=== PATIENT | female | born 1960 | race Caucasian/White ===

== ENCOUNTER 2023-10-21 09:10 | Outpatient (CLI) | payer MEDICARE, SELFPAY ==
[2023-10-21 14:00] LABS: Basophils Absolute Auto 0.1 K/mm3 (0.0-0.1); Basophils Percent Auto 0.6 % (0.2-1.2); Eosinophils Absolute Auto 0.1 K/mm3 (0-0.3); Eosinophils Percent Auto 1.6 % (0-4.4); Hematocrit 44.6 % (37.0-47.0); Hemoglobin 13.8 g/dL (12.0-15.0); Immature Granulocyte Absolute 0.04 K/mm3 (0.00-0.031); Immature Granulocyte Percent A 0.5 % (0-0.5); Lymphocytes Absolute Auto 1.91 K/mm3 (0.9-3.2); Lymphocytes Percent Auto 22.4 % (18.3-44.2); Mean Corpuscular HGB Conc 30.9 g/dl (32-36); Mean Corpuscular Hemoglobin 29.7 pg (26-34); Mean Corpuscular Volume 95.9 fl (80-100); Mean Platelet Volume 9.2 fl (7.4-10.4); Monocytes Absolute Auto 0.6 K/mm3 (0.1-0.6); Monocytes Percent Auto 7.4 % (2.6-8.5); Neutrophils Absolute Auto 5.8 K/mm3 (1.3-6.7); Neutrophils Percent Auto 67.5 % (45.5-73.1); Platelet Count Result 315 k/mm3 (150-375); Red Blood Count 4.65 M/mm3 (4.2-5.4); Red Cell Distribution Width 12.8 % (11.5-14.5); White Blood Count 8.5 K/mm3 (4.5-10.0)
[2023-10-21 14:11] LABS: Alanine Aminotransferase 17 U/L (6-35); Alkaline Phosphatase 106 U/L (38-126); Anion Gap 3 mmol/L (4-12); Aspartate Amino Transferase 34 U/L (14-36); Bilirubin,Total 0.7 mg/dL (0.2-1.3); Blood Urea Nitrogen 15 mg/dL (7-17); Calcium 9.1 mg/dL (8.4-10.2); Carbon Dioxide 32 mmol/L (22-30); Chloride 104 mmol/L (98-107); Cholesterol 187 mg/dL (0-200); Estimated Glomerular Filt Rate > 60; Glucose 116 mg/dL (65-110); HDL Direct 41 mg/dL; Sodium 139 mmol/L (137-145); Triglycerides 125 mg/dL (<150)
[2023-10-21 14:22] LABS: LDL Cholesterol Direct 128 mg/dL
[2023-10-21 14:53] LABS: Vitamin D 25 Hydroxy 29.4 ng/mL
[2023-10-21 15:28] LABS: Hepatitis C Virus Antibody Negative (Negative)
[2023-10-21 16:09] LABS: Hemoglobin A1C 6.1 % (<5.7)
== END 2023-10-21 09:11 | disposition home or self-care (01) ==
PROVIDERS: PCP Family Medicine; Visit Provider Family Medicine
DX: E55.9 Vitamin D deficiency, unspecified (principal); E66.01 Morbid (severe) obesity due to excess calories; R53.83 Other fatigue; R73.9 Hyperglycemia, unspecified; Z68.41 Body mass index [BMI] 40.0-44.9, adult; Z11.59 Encounter for screening for other viral diseases
CPT/HCPCS: 36415; 80053; 80061; 82306; 83036; 84439; 84443; 85025; 86803

== ENCOUNTER 2024-01-26 03:40 | Day surgery (SDC) | payer MEDICARE, SELFPAY ==
[2024-01-06 15:11] VITALS: BMI 39.5
[2024-01-26 11:08] VITALS: BP 178/88; PULSE 78; RESP 19; TEMP 36.3; O2SAT 99
[2024-01-26] MEDS: LACTATED RINGERS 1,000 ML 150 ML IV CONT (11:24)
--- NOTE | 2024-01-26 11:39 | WPDANESEPPF ---
Anes - Initial Pre Proc Eval Procedure: Operation Date: 01/26/24 12:30 Proposed Procedures p Screening Colonoscopy - Kehinde King MD Date/Time: 01/26/24 11:39 Surgeon: Kehinde King MD Pre Op Diagnosis: Neoplasm Screening Patient Data Age: 63 Gender: F Height: 1.73 m Weight: 120.4 kg Last Vital Signs Temp 97.4 F L 01/26/24 11:08 Pulse 78 01/26/24 11:08 Resp 19 01/26/24 11:08 BP 178/88 H 01/26/24 11:08 Pulse Ox 99 01/26/24 11:08 O2 Del Method Room Air 01/26/24 11:08 Allergies Allergy/AdvReac Type Severity Reaction Status Date / Time No Known Allergies Allergy Verified 01/26/24 11:07 Home Medications Medication Instructions Recorded Confirmed Type Vitamin C 1 gummy PO DAILY 10/16/23 01/22/24 History aspirin 81 mg tablet,delayed 81 mg PO DAILY 10/16/23 01/22/24 History release (Adult Low Dose Aspirin) multivitamin 1 tablet PO DAILY 10/16/23 01/22/24 History omega 5-jnl-ctk-fish oil 300 1 cap PO DAILY 10/16/23 01/22/24 History mg-1,000 mg capsule (Fish Oil) hydrochlorothiazide 25 mg tablet 25 mg PO DAILY #90 tabs 12/05/23 01/26/24 Rx multivit,Ca,iron,vya-DL-ufrosps-nxedcgr-phej-YVQO cap PO 01/06/24 01/22/24 History 3 mg-133 mcg capsule (Body, Hair, Skin and Nails) vit C 250 mg-vit E 90 mg-zinc 40 1 tablet PO DAILY 01/06/24 01/22/24 History mg-copper 1 hi-dtzlme-wzmcyr capsule (PreserVision AREDS-2) Patient hx anesthesia problems: none Family hx anesthesia problems: none Results Review: All pre-operative results and documents have been reviewed as part of the pre-operative evaluation. [facility] Family History Family History Mother Patient's mother is in good health Hypertension Father Patient's father is in good health Patient's father is Hypertension Heart problem Sibling Asthma Daughter Diabetes type 1, controlled Social History Social History 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 Gender identity (if verbalized by the patient): Female Sexual Orientation (if Verbalized by the Patient): Straight or Heterosexual Spiritual care concerns: No Agree to blood products: Yes Anes - Eval Final PreProcedure Day of Procedure 01/26/24 11:39 Patient weight: morbidly obese Heart: regular rate and rhythm Lungs: clear to auscultation Airway: Mallampati scale class II Neurological: alert and oriented Last oral intake: >/= 8 hours ASA classification: III Emergent: no Anesthetic plan: proceed Anesthesia type and monitoring: general GIVS and standard monitoring Results Review: All pre-operative results and documents have been reviewed as part of the pre-operative evaluation. Informed Consent: The patient's anesthetic plan and its attendant risks and benefits were discussed with the patient/family/POA. Questions were solicited and answers provided to the satisfaction of the patient/family/POA.
--- NOTE | 2024-01-26 11:50 | PM.HPGS ---
History of Present Illness History of Present Illness Consent: Risks, benefits, and alternatives have been discussed and questions answered. Patient agrees to proceed with procedure. Chief complaint: Neoplasm Screening Narrative: Christy Marte is a 63 year old female here for screening colonoscopy, last one about 6 years ago Review of Systems Review of Systems: All systems reviewed & are unremarkable except as noted in HPI and below PMFSH Past Medical History Medical History (Updated 01/26/24 @ 11:51 by Kehinde King MD) Colon cancer screening Family History Family History Mother Patient's mother is in good health Hypertension Father Patient's father is in good health Patient's father is Hypertension Heart problem Sibling Asthma Daughter Diabetes type 1, controlled Social History Social History 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 Gender identity (if verbalized by the patient): Female Sexual Orientation (if Verbalized by the Patient): Straight or Heterosexual Spiritual care concerns: No Agree to blood products: Yes Meds Home Medications and Allergies Home Medications Medication Instructions Recorded Confirmed Type Vitamin C 1 gummy PO DAILY 10/16/23 01/22/24 History aspirin 81 mg tablet,delayed 81 mg PO DAILY 10/16/23 01/22/24 History release (Adult Low Dose Aspirin) multivitamin 1 tablet PO DAILY 10/16/23 01/22/24 History omega 1-ddz-khc-fish oil 300 1 cap PO DAILY 10/16/23 01/22/24 History mg-1,000 mg capsule (Fish Oil) hydrochlorothiazide 25 mg tablet 25 mg PO DAILY #90 tabs 12/05/23 01/26/24 Rx multivit,Ca,iron,gtp-FA-yqthibn-pzfbpcl-bhzo-QCBN cap PO 01/06/24 01/22/24 History 3 mg-133 mcg capsule (Body, Hair, Skin and Nails) vit C 250 mg-vit E 90 mg-zinc 40 1 tablet PO DAILY 01/06/24 01/22/24 History mg-copper 1 zh-cxbtcj-jpjcin capsule (PreserVision AREDS-2) Allergies Allergy/AdvReac Type Severity Reaction Status Date / Time No Known Allergies Allergy Verified 01/26/24 11:07 Vital Signs Vital Signs - 24 hr 01/26/24 11:08 Temperature 97.4 F L Pulse Rate 78 Respiratory Rate 19 Blood Pressure 178/88 H Pulse Oximetry 99 Oxygen Delivery Room Air Exam Const: General: comfortable and no acute distress HENMT: Face/Nose/Sinus: Normal nares present Eyes: General: appearance normal, both eyes and all related structures Neck: Neck: no JVD Resp: Auscultation: clear to auscultation bilaterally Cardio: Rate: regular rate Rhythm: regular rhythm GI: Inspection: non-distended GI Palp: Yes Soft to palpation Skin: General skin exam: normal color Neuro: General: gait normal Speech: normal speech Extrem: General: normal to inspection Psych: Mental Status: mental status grossly normal Assessment and Plan Assessment and plan (1) Colon cancer screening: Code(s): Z12.11 - Encounter for screening for malignant neoplasm of colon Status: Acute Assessment and Plan: colonoscopy
[2024-01-26 12:05] VITALS: BP 115/68; PULSE 68; RESP 20; O2SAT 98
[2024-01-26 12:15] VITALS: BP 157/86; PULSE 64; RESP 20; O2SAT 100
[2024-01-26 12:25] VITALS: BP 160/88; PULSE 66; RESP 18; O2SAT 100
== END 2024-01-26 12:34 | disposition home or self-care (01) ==
PROVIDERS: PCP Family Medicine; Visit Provider Internal Medicine Gastroenterology
PROC: 0DJD8ZZ Inspection of Lower Intestinal Tract, Via Natural or Artificial Opening Endoscopic (ICD-10-PCS; CPT 45378; principal; 2024-01-26 12:30)
DX: Z12.11 Encounter for screening for malignant neoplasm of colon (principal); K64.8 Other hemorrhoids; K57.30 Diverticulosis of large intestine without perforation or abscess without bleeding; E66.01 Morbid (severe) obesity due to excess calories; Z68.41 Body mass index [BMI] 40.0-44.9, adult; Z79.82 Long term (current) use of aspirin; Z82.49 Family history of ischemic heart disease and other diseases of the circulatory system
CPT/HCPCS: G0121; J2704; J7120

== ENCOUNTER 2024-03-02 11:16 | Emergency (ER) | payer MEDICARE, SELFPAY ==
[2024-03-02] VITALS (10 sets, daily range): BP systolic 188–216; BP diastolic 80–101; PULSE 102–109; RESP 16–18; TEMP 36.6; O2SAT 96–99
--- NOTE | ~2024-03-02 | CT_ITS ---
CT abdomen pelvis w con Ordering provider: Ron Belle MD History: 63 years Female with . epigastric pain/RUQ, WBC high, N/V . Comparison: None. Technique: CT abdomen and pelvis with IV and without oral contrast. Automated exposure control and it erative reconstruction technique were employed. The dose-length product was 1449.70 mGy-cm. 100 mL Om nipaque 350 was given IV. Findings: VISUALIZED LOWER CHEST: Dependent atelectatic changes. UPPER ABDOMINAL ORGANS: Liver: Normal. Gallbladder: Cholelithiasis with distended gallbladder. Spleen: Normal. Stomach/duodenum: Normal. Pancreas: Normal. Adrenals: Normal. Kidneys: Scarring seen in the left kidney mid and lower pole and in the right kidney upper pole.. PELVIC ORGANS: The bladder is underfilled. BOWEL AND MESENTERY: Colon: Mild sigmoid diverticulosis without diverticulitis. Normal appendix. Small Bowel: Normal. No obstruction. Peritoneum/mesentery: No free air or free fluid. No mesenteric lymphadenopathy. RETROPERITONEUM: Mild atheromatous disease of the abdominal aorta. No retroperitoneal lymphadenopat hy. MUSCULOSKELETAL: Superficial soft tissues: Small fat-containing umbilical hernia. The superficial soft tissues are nor mal. Bones: Age appropriate degenerative changes of the spine. IMPRESSION: 1. Cholelithiasis with no evidence of cholecystitis. Clinical correlation advised. 2. Bilateral kidney scarring with no definite stones are hydronephrotic changes. 3. Small fat-containing umbilical hernia. Reviewed, dictated and finalized at location A. IMPRESSION: 1. Cholelithiasis with no evidence of cholecystitis. Clinical correlation advi sed. 2. Bilateral kidney scarring with no definite stones are hydronephrotic change s. 3. Small fat-containing umbilical hernia.
--- NOTE | 2024-03-02 11:23 | ED.ABDPAIN ---
HPI - Abdominal Pain General Chief Complaint: Abdominal Pain Stated Complaint: abd pain Time Seen by Provider: 03/02/24 11:20 Source: patient Mode of arrival: ambulatory Limitations: no limitations History of Present Illness HPI narrative: 63 year old female presents to the Emergency Department complaining of epigastric /RUQ abdominal pain. Onset last night about an hour after eating. States she forced herself to vomit 4 times by sticking finger down throat. States she has had both diarrhea and constipation. Denies chest pain or shortness of breath. Denies urinary tract symptoms. No prior history of. Pain non-radiating. MD elicited complaint: abdominal pain Pertinent past history: none Onset (ago): day(s) (last night) Pain Consistency: intermittent Severity: moderate Radiation: none Exacerbating factors: nothing Relieving factors: nothing Related Data Patient : No Home Medications Medication Instructions Recorded Confirmed Baby Aspirin 81 mg PO DAILY 03/02/24 03/02/24 hydrochlorothiazide 25 mg tablet 25 mg PO DAILY 03/02/24 03/02/24 Allergies Allergy/AdvReac Type Severity Reaction Status Date / Time No Known Allergies Allergy Verified 03/02/24 11:23 Review of Systems Review of Systems: All systems reviewed & are unremarkable except as noted in HPI and below Constitutional: Constitutional: Reports as per HPI, Denies chills and Denies fever(s) Eyes: Eyes: Reports as per HPI ENT: Reports system reviewed and no additional complaints, except as documented Cardiovascular: Cardiovascular: Reports as per HPI and Denies chest pain Respiratory: Respiratory: Reports as per HPI, Denies cough and Denies dyspnea Gastrointestinal: Gastrointestinal: Reports as per HPI, Reports constipation, Reports diarrhea and Reports vomiting (self induced) Genitourinary: Genitourinary: Reports no additional female genitourinary complaints Musculoskeletal: Musculoskeletal: Reports no additional musculoskeletal complaints Integumentary/Breasts: Skin/Breast: Reports system reviewed and no additional complaints, except as docu Neurologic: Reports system reviewed and no additional complaints, except as documented Exam Const: General: healthy appearing Nutritional Appearance: well nourished Orientation/consciousness: patient oriented x3 Limitations: no limitations HENMT: Head: normal to inspection Ears: external ears normal Face/Nose/Sinus: Normal external nose present Face and sinus: normal facial exam Mouth: Yes Normal oral and palatal mucosa present Throat: posterior oropharynx normal Eyes: Conjunctivae: conjunctivae normal Pupils: Equal, round and reactive pupils present EOM: EOMs intact bilaterally Direct Ophthalmoscopy: no photophobia Neck: Neck: normal visual inspection Chest: Chest palpation & inspection: normal inspection of the chest Resp: Effort & Inspection: normal respiratory effort Auscultation: clear to auscultation bilaterally Cardio: Rate: regular rate Rhythm: regular rhythm Heart sounds: no murmurs GI: Inspection: non-distended GI Palp: Yes Soft to palpation, Yes Tenderness to palpation present (GI) (RUQ /epigastric mildly), No Guarding due to palpation present (GI), No Palpable mass present and No Rebound tenderness present Auscultation: normal bowel sounds : General: Yes bladder normal to palpation Back/Spine/Pelvis: Back: no CVA tenderness Skin: General skin exam: normal color Rashes: no rashes Neuro: General: patient oriented x3, moves all extremities, no meningeal signs, no focal motor deficits and CN's II-XI intact bilaterally Cranial nerves: Yes Nystagmus not present Speech: normal speech Gait exam (Neuro): Normal gait present Extrem: General: normal to inspection and no clubbing, cyanosis or edema Psych: Mental Status: mental status grossly normal Course Course Emergency Course: 63 y/o female presents to the ED c/o epigastric /RUQ tenderness. Onset last night. S
--- NOTE | 2024-03-02 11:34 | ECG_ITS ---
Test Date: 2024-03-02 11:44:10 Measurements Intervals [place] Rate: 84 P: 70 ME: 188 QRS: -32 QRSD: 109 T: 48 QT: 405 QTc: 481 Interpretive Statements SINUS RHYTHM LEFT AXIS DEVIATION BORDERLINE R WAVE PROGRESSION, ANTERIOR LEADS BASELINE ARTIFACT- I, II BORDERLINE ECG No previous ECG available for comparison Electronically Signed On 03-02-2024 11:45:10 CDT by Owen Garland D.O.
[2024-03-02 11:42] LABS: Hematocrit 43.5 % (35.0-42.0); Hemoglobin 14.6 g/dL (11.7-13.8); Mean Corpuscular HGB Conc 33.6 g/dL (32-36); Mean Corpuscular Hemoglobin 29.9 pg (27.0-31.0); Mean Platelet Volume 8.3 fl (9.2-11.8); Platelet Count Result 341 K/mm3 (150-420); Red Blood Count 4.89 M/mm3 (4.20-5.40); Red Cell Distribution Width 12.1 % (11.6-14.4)
[2024-03-02 11:43] LABS: White Blood Count 22.7 K/mm3 (4.8-10.8)
[2024-03-02 11:54] LABS: Add Urine Microscopic? YES; Appearance Urine Clear (Clear); Bilirubin Urine Negative (Negative); Blood Urine Trace-intact (Negative); Color Urine Light Yellow (Yellow); Glucose Urine UA Negative (Negative); Ketones Urine Negative (Negative); Leukocyte Esterase Ur Negative (Negative); Nitrate Urine Negative (Negative); Protein Urine Trace (Negative); Urobilinogen Urine 0.2 mg/dL (0.2-1.0); pH Urine 6.5 (5.0-8.0)
[2024-03-02 11:55] LABS: Band Neutrophils Percent 0 % (0-6); Basophils Percent Manual 0 % (0-1); Eosinophils Percent Manual 0 % (1-6); Lymphocytes Percent Manual 4 % (18-44); Monocytes Absolute Manual 1.58 K/mm3 (0.1-0.90); Monocytes Percent Manual 7 % (3-9); Neutrophils Percent Manual 89 % (46-73); Platelet Estimate Adequate (Adequate); Total Cells Counted 100
[2024-03-02 11:57] LABS: Alanine Aminotransferase 34 U/L (14-59); Albumin Level 3.3 g/dL (3.4-5.0); Alkaline Phosphatase 134 U/L (46-116); Amylase 18 U/L (25-115); Aspartate Amino Transferase 20 U/L (15-37); Bilirubin,Total 0.6 mg/dL (0.00-1.00); Blood Urea Nitrogen 10 mg/dL (7-18); Calcium 9.1 mg/dL (8.5-10.1); Chloride 93 mmol/L (98-108); Estimated CRCL calculation 67 ml/min; Estimated Glomerular Filt Rate 55; Glucose 174 mg/dL (70-99); Lipase 15 U/L (16-77); Osmolality Calculated 277 mOsm/kg (285-295); Potassium 3.4 mmol/L (3.5-5.1); Sodium 132 mmol/L (136-145); Total Protein 7.7 g/dL (6.4-8.2)
[2024-03-02 11:58] LABS: Bacteria Urine Trace /hpf; RBC Urine 0-2 /hpf (0-2); Squamous Epithelial Cell Urine Few /hpf (Few); WBC Urine None seen /hpf (0-3)
[2024-03-02 12:02] LABS: Lactic Acid Reflex 2.8 mmol/L (0.4-2.0)
[2024-03-02 12:05] LABS: Anion Gap 11 mmol/L (4-12); Carbon Dioxide 28 mmol/L (21-32)
--- NOTE | 2024-03-02 12:10 | PC.NURSE ---
Gave pt warm blanket. at bedside.
[2024-03-02 12:41] LABS: Troponin I 11.3 ng/L (0.00-60.4)
--- NOTE | 2024-03-02 13:20 | PC.NURSE ---
Pt resting comfortably with at bedside.
[2024-03-02] MEDS: ONDANSETRON INJ 4 MG/2 ML VIAL IV PUSH (13:36)
[2024-03-02] MEDS: PIPERACILLN/TAZ 3.375GM/NS50ML 3.375 GM/50 ML BAG IVPB (13:43)
[2024-03-02] MEDS: HYDROmorphone HCL INJ (*CRX) 2 MG/ML VIAL 1 MG IV PUSH (14:03)
--- NOTE | 2024-03-02 14:10 | PC.NURSE ---
Gave pt warm blanket. at bedside.
--- NOTE | 2024-03-02 14:35 | PC.NURSE ---
Pt was de-stating after Dilaudid. ERP aware. Pt placed on 2 liters of Oxygen.
[2024-03-02 14:37] LABS: Reflex Lactic Acid Yes or No Add Lactic
--- NOTE | 2024-03-02 14:49 | PC.NURSE ---
ERP aware of vitals. No new orders at this time.
== END 2024-03-02 15:23 | disposition short-term general hospital (02) ==
PROVIDERS: Emergency Provider Emergency Medicine; PCP Family Medicine
DX: K80.01 Calculus of gallbladder with acute cholecystitis with obstruction (principal); D72.829 Elevated white blood cell count, unspecified; Z79.899 Other long term (current) drug therapy
CPT/HCPCS: 36415; 74177; 80053; 81001; 82150; 83605; 83690; 84484; 85025; 93005; 96365; 96375; 99285; J1170; J2405; J2543; Q9967

== ENCOUNTER 2024-03-02 16:30 | Observation (INO) | payer MEDICARE, SELFPAY ==
--- NOTE | ~2024-03-02 | US_ITS ---
EXAMINATION: US abdomen limited DATE: 03/03/2024 08:33 INDICATION: Right upper quadrant abdominal pain. Cholelithiasis. TECHNIQUE: Multiple grayscale and Doppler ultrasound images of the abdomen were obtained. COMPARISON: CT abdomen and pelvis 03/02/2024 FINDINGS: The visualized portions of the head and body of the pancreas are normal. The liver is cheli l without focal lesion. There is normal flow in main portal vein. The gallbladder is distended and co ntains gallstones. Gallbladder wall thickening is noted. There is no sonographic Norris's sign. The c ommon duct is normal and measures 6 mm. IMPRESSION: 1. Acute cholecystitis. Reviewed, dictated and finalized at location A. IMPRESSION: 1. Acute cholecystitis.
--- NOTE | ~2024-03-02 | XR_ITS ---
EXAMINATION: XR chest 1V portable Exam Date/Time: 03/02/2024 19:50 CDT HISTORY: leukocytosis, recent COVID Comparison: CT abdomen pelvis, same date. RESULT: Lines, tubes, and devices: None. Lungs and pleura: Ill-defined subsegmental area of opacity in the peripheral left lower lung. Mild l eft lateral costophrenic angle blunting. These findings are unchanged when compared to the frame repairer view the prior CT. Cardiomediastinal silhouette: Stable. Other: No acute osseous or upper abdominal finding. IMPRESSION: Subsegmental left lateral airspace opacity, likely representing atelectasis. Reviewed, dictated and finalized at location K.
--- NOTE | 2024-03-02 16:05 | ADMGEN ---
This patient, Christy Marte, was admitted to Medical Room 343-01. Patient/family oriented to hospital policies and general routines including ID bracelet, bed and alarms, visiting hours, pain management, procedures, bathroom and other care routines, personal items, smoking policy, room service/diet, and visiting hours. Information on how to activate the Rapid Response Team has been discussed. Patient/Family are encouraged to report perceived risks to care and to ask questions if they do not understand what they are told or what they should do.
--- NOTE | 2024-03-02 16:35 | PM.IMHP ---
H&P: HPI History of Present Illness Date/Time: 03/02/24 16:35 Chief Complaint: Abdominal pain. Narrative: This is a very pleasant 63-year-old female with hypertension, hyperlipidemia, and prediabetes who presented to the emergency department at the [facility] earlier today for evaluation of epigastric pain. The patient provides the following history. Shortly after eating dinner last night (cheesy potatoes, chicken nuggets, and ice cream) she developed sudden and severe aching pain in the epigastric and right upper quadrant associated with nausea. She induced emesis x4 which was of no benefit. Advil was of no relief either. She has had quite a bit of belching and flatus since that time and this morning she had small, formed stools. She has never had similar symptoms. Her ate the same dinner and has not had any issues. Of note, she tested positive for COVID last Friday with mild symptoms that have improved and nearly resolved. She has not had a fever. She denies chest pain, pleuritic pain, shortness of breath, hematemesis, melena, hematochezia. No history of peptic ulcers, pancreatitis, or gallbladder disease In the ED: She was afebrile on arrival. Blood pressures have been running high, in the upper 180s to low 200s systolic. Labs were significant for WBC count 23.7, hemoglobin 14.6, sodium 132, potassium 3.4, chloride 93, BUN 10, creatinine 1.01, glucose 174, lactic acid 2.8, total bilirubin 0.6, AST 20, ALT 34, alkaline phosphatase 134, lipase 15. CT of the abdomen and pelvis showed cholelithiasis, bilateral kidney scarring, and small fat containing umbilical hernia. Transfer was initiated to [place] for further evaluation and possible GI and surgery consults. Review of Systems Review of Systems: 12 systems were reviewed and are negative except for as per HPI. [facility] Past Medical History Medical History (Updated 03/02/24 @ 16:37 by Lisa Lehman PA-C) Hyperlipidemia Hypertension Pre-diabetes Family History Family History Mother Patient's mother is in good health Hypertension Father Patient's father is in good health Patient's father is Hypertension Heart problem Sibling Asthma Daughter Diabetes type 1, controlled Social History Social History Social History: Surrogate medical decision maker: Pardeep Marte, spouse. Code status: Full code. 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 Spiritual care concerns: No Agree to blood products: Yes Meds Home Medications and Allergies Home Medications Medication Instructions Recorded Confirmed Type Vitamin C 1 gummy PO DAILY 10/16/23 03/02/24 History aspirin 81 mg tablet,delayed 81 mg PO DAILY 10/16/23 03/02/24 History release (Adult Low Dose Aspirin) multivitamin 1 tablet PO DAILY 10/16/23 03/02/24 History omega 1-kqy-bxg-fish oil 300 1 cap PO DAILY 10/16/23 03/02/24 History mg-1,000 mg capsule (Fish Oil) vit C 250 mg-vit E 90 mg-zinc 40 1 tablet PO DAILY 01/06/24 03/02/24 History mg-copper 1 st-jasegc-ulvigv capsule (PreserVision AREDS-2) hydrochlorothiazide 25 mg tablet 25 mg PO DAILY #90 tabs 03/02/24 03/02/24 Rx Allergies Allergy/AdvReac Type Severity Reaction Status Date / Time No Known Allergies Allergy Verified 01/26/24
[2024-03-02 19:53] LABS: Hematocrit 40.9 % (37.0-47.0); Hemoglobin 13.9 g/dL (12.0-15.0); Mean Corpuscular Hemoglobin 30.5 pg (26-34); Mean Corpuscular Volume 89.9 fl (80-100); Mean Platelet Volume 8.5 fl (7.4-10.4); Platelet Count Result 285 k/mm3 (150-375); Red Blood Count 4.55 M/mm3 (4.2-5.4); Red Cell Distribution Width 12.7 % (11.5-14.5); White Blood Count 28.6 K/mm3 (4.5-10.0)
[2024-03-02 20:05] LABS: Alanine Aminotransferase 47 U/L (6-35); Alkaline Phosphatase 115 U/L (38-126); Anion Gap 10 mmol/L (4-12); Aspartate Amino Transferase 66 U/L (14-36); Bilirubin,Total 1.1 mg/dL (0.2-1.3); Blood Urea Nitrogen 13 mg/dL (7-17); CRP 5.5 mg/dL (<1.0); Carbon Dioxide 29 mmol/L (22-30); Chloride 91 mmol/L (98-107); Estimated Glomerular Filt Rate > 60; Glucose 180 mg/dL (65-110); Lipase 27 U/L (23-300); Potassium 3.2 mmol/L (3.4-5.0); Sodium 130 mmol/L (137-145)
[2024-03-02] MEDS: HYDROcodone/acetaminophen (*CRX) 5-325 MG TABLET 1 TAB PO (20:41)
[2024-03-02 20:52] LABS: Procalcitonin 2.3 ng/mL
[2024-03-02 21:00] VITALS: BP 115/59; PULSE 85; RESP 16; TEMP 37.2; O2SAT 94
[2024-03-02] MEDS: POTASSIUM CHLORIDE 20 MEQ ER TABLET 40 MEQ PO (21:14)
[2024-03-02] MEDS: metroNIDAZOLE 500 MG/ISO 100ML 500 MG/100 ML BAG 100 MG IVPB (21:14)
[2024-03-02] MEDS: SODIUM CHLORIDE 0.9% IV 1,000 ML 100 ML IV CONT (21:14)
[2024-03-03] VITALS (10 sets, daily range): BP systolic 121–170; BP diastolic 58–80; PULSE 81–104; RESP 14–20; TEMP 36.4–37.4; O2SAT 92–100; BMI 42.3
[2024-03-03] MEDS: metroNIDAZOLE 500 MG/ISO 100ML 500 MG/100 ML BAG 100 MG IVPB ×3 (07:42→21:16)
[2024-03-03 07:52] LABS: Mean Corpuscular HGB Conc 32.5 g/dl (32-36); Mean Corpuscular Volume 92.4 fl (80-100); Mean Platelet Volume 8.6 fl (7.4-10.4); Platelet Count Result 286 k/mm3 (150-375); Red Blood Count 4.33 M/mm3 (4.2-5.4); White Blood Count 24.3 K/mm3 (4.5-10.0)
[2024-03-03 08:00] LABS: Alanine Aminotransferase 72 U/L (6-35); Albumin Level 3.7 g/dL (3.5-5.1); Alkaline Phosphatase 111 U/L (38-126); Anion Gap 8 mmol/L (4-12); Aspartate Amino Transferase 74 U/L (14-36); Bilirubin,Total 1.5 mg/dL (0.2-1.3); Blood Urea Nitrogen 15 mg/dL (7-17); Calcium 8.3 mg/dL (8.4-10.2); Carbon Dioxide 31 mmol/L (22-30); Chloride 95 mmol/L (98-107); Estimated CRCL calculation 83 ml/min; Estimated Glomerular Filt Rate > 60; Glucose 164 mg/dL (65-110); Magnesium 1.9 mg/dL (1.6-2.3); Potassium 3.7 mmol/L (3.4-5.0); Sodium 134 mmol/L (137-145)
[2024-03-03] MEDS: PANTOPRAZOLE SODIUM IV 40 MG VIAL IV PUSH (08:50)
--- NOTE | 2024-03-03 09:14 | PM.CNGS ---
Assessment and Plan Assessment and plan (1) Acute calculous cholecystitis: Code(s): K80.00 - Calculus of gallbladder with acute cholecystitis without obstruction Status: Acute Assessment and Plan: CT showed numerous gallstones in the gallbladder. US this morning showed findings of acute cholecystitis. Her abdominal pain has improved. WBC count still at 24,000 this morning. Discussed treatment options in detail with the patient, including nonoperative management versus proceeding with a laparoscopic cholecystectomy. Description of the procedure, risks, benefits, alternatives, and expected recovery were discussed. We also discussed the risks of bile leak and bile duct injury, liver/bowel injury, bleeding, and infection. Also discussed the possibility of having to convert to an open procedure if necessary. Patient wishes to proceed with surgery. Dr. Malone will add her onto the surgery schedule. I will keep her NPO with IV fluids and analgesics. She is currently on IV Ceftriaxone and metronidazole. (2) Hypertension: Code(s): I10 - Essential (primary) hypertension Status: Acute (3) Obesity, morbid, BMI 40.0-49.9: Code(s): E66.01 - Morbid (severe) obesity due to excess calories Status: Acute Plan I have discussed the patient's case and plan of care with Dr. Malone. Thank you for allowing us to see the patient in consultation and we will continue to follow along with you. History of Present Illness Consult details Consult date: 03/03/24 Reason for consult: other (Cholelithiasis, right upper quadrant pain) Requesting physician: Lisa Lehman PA-C Narrative: This is a 63-year-old woman with PMH hypertension, hyperlipidemia, and prediabetes, who we have been asked to see in surgical consultation for cholelithiasis and right upper quadrant abdominal pain. She presented to [place] ED yesterday with complaints of right upper quadrant abdominal pain. She reports the sudden onset of pain about an hour after eating dinner 2 nights ago. She ate cheesy potatoes, chicken nuggets, and ice cream. Initially, she thought these were gas pain, but the pain progressively got worse throughout the night and she was unable to sleep. She developed nausea and bloating, and forced herself to vomit without relief. She denies ever having this pain in the past. Due to her progressive pain, she came into the ED for evaluation. She was afebrile, heart rate in the low 100s, and hypertensive with blood pressures running as high as 180's to 200's systolic. [place] [address], lactic acid 2.8, LFTs normal, and lipase normal. CT scan of the abdomen and pelvis showed cholelithiasis, bilateral kidney scarring, and small fat containing umbilical hernia. She was transferred to [facility] for further evaluation and surgical consultation. She is now seen on the medical floor and had a right upper quadrant abdominal ultrasound today that showed findings of acute calculous cholecystitis. Her abdominal pain has improved. She still has RUQ tenderness. No previous abdominal surgeries. Review of Systems Review of Systems: All systems reviewed & are unremarkable except as noted in HPI and below PMFSH Past Medical History Medical History (Updated 03/03/24 @ 09:28 by ANGELIQUE Gómez) Hyperlipidemia Hypertension Pre-diabetes Surgical History Surgical History No pertinent past surgical history Family History Family History Mother Patient's mother is in good health Hypertension Father Patient's father is in good health Patient's father is Hypertension Heart problem Sibling Asthma Daughter Diabetes type 1, controlled Social History Social History Social History: Surrogate medical decision maker: Pardeep
[2024-03-03] MEDS: SODIUM CHLORIDE 0.9% IV 1,000 ML 100 ML IV CONT ×2 (11:09→21:14)
--- NOTE | 2024-03-03 12:27 | PM.IMPN ---
Progress Note: A&P Assessment and Plan (1) Abdominal pain: Code(s): R10.9 - Unspecified abdominal pain Status: Acute Assessment and Plan: 03/03/24: Acute Cholecystitis as evidenced per US NPO for OR at 1700 this evening. PRN pain meds PRN anti-emetics IVF of NS at 100 ml/hr Surgery has consulted. (2) Cholelithiasis: Code(s): K80.20 - Calculus of gallbladder without cholecystitis without obstruction Status: Acute Assessment and Plan: 03/03/24: See #1 (3) Leukocytosis: Code(s): D72.829 - Elevated white blood cell count, unspecified Status: Acute Assessment and Plan: 03/03/24: Secondary to #'s 1 and 2. Trending downward at this time 28.6-->24.3. Continue IV abx of Rocephin and Flagyl. Trend Leukocytosis with daily labs. (4) Hypertension: Code(s): I10 - Essential (primary) hypertension Status: Chronic Assessment and Plan: 03/03/24: Resume HCTZ and monitor and trend WBC's. (5) Pre-diabetes: Code(s): R73.03 - Prediabetes Status: Chronic Assessment and Plan: 03/03/24: Check A1C Heart healthy diet when allowed to eat. Time Spent With Patient Time with patient: 25 - 35 minutes Subjective Date/time seen: 03/03/24 1040 Interval history: This pt was examined at the bedside today in interval assessment since being admitted to the hospital with what appeared to be possible cholecystitis as evidenced by US RUQ. She continues to have managed pain and is NPO for OR at 1700 today for cholecystectomy. She has no other acute complaints or symptoms at this time. Review of Systems Review of Systems: All systems reviewed & are unremarkable except as noted in HPI and below Exam Narrative: General: Well-developed, nontoxic-appearing female lying supine in bed at this time in no acute distress. HEENT: PERRL, EOMI. Sclera anicteric. MMM Neck: Supple with FROM Respiratory: Lungs are clear to auscultation bilaterally. Cardiovascular: Regular rate and rhythm with S1-S2. Gastrointestinal: Abdomen is soft, TTP in RUQ with + Norris's sign, and nondistended with positive bowel sounds. Skin: Warm and dry without lesions or rashes. Extremities: No cyanosis, clubbing, or edema. Radial and pedal pulses intact. Neurological: Alert. Cranial nerves 2-12 are grossly intact. No gross focal deficits to casual conversation. Psychiatric: Pleasant and cooperative with normal mood and affect. Judgment and insight intact. Objective Data Vital Signs Vital Signs: Vital Signs - 24 hr 03/02/24 17:00 03/02/24 21:00 03/02/24 20:00 Temperature 98.9 F Pulse Rate 85 Respiratory Rate 16 Blood Pressure 115/59 L Pulse Oximetry 94 Oxygen Delivery Room Air Room Air 03/03/24 04:54 Temperature 99 F Pulse Rate 82 Respiratory Rate 16 Blood Pressure 127/65 Pulse Oximetry 94 Oxygen Delivery Intake/Output Intake/Output: Intake & Output 02/29/24 03/01/24 03/02/24 03/03/24 23:59 23:59 23:59 23:59 Intake Total 580 150 Output Total 800 Balance 580 -650 Meds/Results Medications: Active Medications Generic Name Dose Route Start Last Admin Trade Name Freq PRN Reason Stop Dose Admin Acetaminophen 650 mg 03/02/24 16:30 Acetaminophen 325 Mg Tablet PO Q4H PRN Mild Pain (1-3) or Fever Hydrocodone Bitart/Acetaminophen 1 tab 03/02/24 16:32 03/02/24 20:41 Hydrocodone/Acetaminophen (*Crx) 5-325 Mg Tablet PO 1 tab Q6H PRN Administration Pain Rated 4-6 Ceftriaxone Sodium 1 gm in 50 mls @ 100 mls/hr 03/02/24 21:00 03/02/24 21:14 Rocephin 1 Gm/Ns 50 Ml IVPB 100 mls/hr Q24H FLAKO Administration Metronidazole 500 mg in 100 mls @ 100 mls/hr 03/02/24 22:00 03/03/24 07:42 Flagyl 500 Mg/Iso Soln 100 Ml IVPB 100 mls/hr Q8HR FLAKO Administration Sodium Chloride 1,000 mls @ 100 mls/hr 03/03/24 11:00 03/03/24 11:09 Normal Saline Iv IV CONT 100 mls/hr .Q10H S
[2024-03-03 13:30] LABS: Hemoglobin A1C 6.7 % (<5.7)
--- NOTE | 2024-03-03 14:45 | WPDHPUPDATE1 ---
History and Physical Update Update Date/Time: 03/03/24 14:45 History and Physical has been reviewed, including an updated exam of the patient. There are NO changes in the patient's condition. Risks, benefits, and alternatives have been discussed and questions answered. Patient agrees to proceed with procedure.
--- NOTE | 2024-03-03 14:48 | PC.NURSE ---
Patient transferred to surgery via stretcher.
[2024-03-03] MEDS: LACTATED RINGERS 1,000 ML 30 ML IV CONT ×2 (15:00→16:58)
--- NOTE | 2024-03-03 15:10 | WPDANESEPPF ---
Anes - Initial Pre Proc Eval Procedure: Operation Date: 03/03/24 17:00 Proposed Procedures p Laparoscopic Cholecystectomy - Heike Mullins MD Date/Time: 03/03/24 15:10 Surgeon: ALEXANDER Woodruff Pre Op Diagnosis: Cholelithiasis Patient Data Age: 63 Gender: F Height: 1.7 m Weight: 122.7 kg Last Vital Signs Temp 99 F 03/03/24 04:54 Pulse 82 03/03/24 04:54 Resp 16 03/03/24 04:54 BP 127/65 03/03/24 04:54 Pulse Ox 94 03/03/24 04:54 O2 Del Method Room Air 03/02/24 20:00 Allergies Allergy/AdvReac Type Severity Reaction Status Date / Time No Known Allergies Allergy Verified 03/03/24 08:40 Home Medications Medication Instructions Recorded Confirmed Type Vitamin C 1 gummy PO DAILY 10/16/23 03/02/24 History aspirin 81 mg tablet,delayed 81 mg PO DAILY 10/16/23 03/02/24 History release (Adult Low Dose Aspirin) multivitamin 1 tablet PO DAILY 10/16/23 03/02/24 History omega 5-hwk-apf-fish oil 300 1 cap PO DAILY 10/16/23 03/02/24 History mg-1,000 mg capsule (Fish Oil) vit C 250 mg-vit E 90 mg-zinc 40 1 tablet PO DAILY 01/06/24 03/02/24 History mg-copper 1 [id number] capsule (PreserVision AREDS-2) Baby Aspirin 81 mg PO DAILY 03/02/24 03/02/24 History hydrochlorothiazide 25 mg tablet 25 mg PO DAILY 03/02/24 03/02/24 History hydrochlorothiazide 25 mg tablet 25 mg PO DAILY #90 tabs 03/02/24 03/02/24 Rx Laboratory Tests 03/02/24 03/02/24 03/03/24 19:39 19:46 07:21 WBC 28.6 H K/mm3 24.3 H K/mm3 (4.5-10.0) (4.5-10.0) RBC 4.55 M/mm3 4.33 M/mm3 (4.2-5.4) (4.2-5.4) Hgb 13.9 g/dL 13.0 g/dL (12.0-15.0) (12.0-15.0) Hct 40.9 % 40.0 % (37.0-47.0) (37.0-47.0) MCV 89.9 fl 92.4 fl (80-100) (80-100) MCH 30.5 pg 30.0 pg (26-34) (26-34) MCHC 34.0 g/dl 32.5 g/dl (32-36) (32-36) RDW 12.7 % 13.0 % (11.5-14.5) (11.5-14.5) Plt Count 285 k/mm3 286 k/mm3 (150-375) (150-375) MPV 8.5 fl 8.6 fl (7.4-10.4) (7.4-10.4) Sodium 130 L mmol/L 134 L mmol/L (137-145) (137-145) Potassium 3.2 L mmol/L 3.7 mmol/L (3.4-5.0) (3.4-5.0) Chloride 91 L mmol/L 95 L mmol/L (98-107) (98-107) Carbon Dioxide 29 mmol/L 31 H mmol/L (22-30) (22-30) Anion Gap 10 mmol/L 8 mmol/L (4-12) (4-12) BUN 13 mg/dL 15 mg/dL (7-17) (7-17) Creatinine 0.70 mg/dL 0.80 mg/dL (0.7-1.0) (0.7-1.0) Estim Creat Clear Calc Not Reportable 83 ml/min Estimated GFR > 60 > 60 (59 - ) (59 - ) Glucose 180 H mg/dL 164 H mg/dL (65-110) (65-110) Hemoglobin A1c 6.7 H % (<5.7) Calcium 9.0 mg/dL 8.3 L mg/dL (8.4-10.2) (8.4-10.2) Magnesium 1.9 mg/dL (1.6-2.3) Total Bilirubin 1.1 mg/dL 1.5 H mg/dL (0.2-1.3) (0.2-1.3) AST 66 H U/L 74 H U/L (14-36) (14-36) ALT 47 H U/L 72 H U/L (6-35) (6-35) Alkaline Phosphatase 115 U/L 111 U/L (38-126) (38-126) C-Reactive Protein 5.5 H mg/dL (<1.0) Total Protein 7.0 g/dL 7.0 g/dL (6.3-8.2) (6.3-8.2) Albumin 4.0 g/dL 3.7 g/dL (3.5-5.1) (3.5-5.1) Lipase 27 U/L (23-300) Procalcitonin 2.3 ng/mL Patient hx anesthesia problems: none Family hx anesthesia problems: none Results Review: All pre-operative results and documents have been reviewed as part of the pre-operative evaluation. [facility] Past Medical History Medical History Hyperlipidemia Hypertension Pre-diabetes Surgical History Surgical History No pertinent past surgical history Family History Family History Mother Patient's mother is in good health Hypertension Father Patient's father is
[2024-03-03] MEDS: BUPIVACAINE/EPINEPHRINE 0.5% 50 ML VIAL 30 ML INFILTRATE (15:52)
--- NOTE | 2024-03-03 16:46 | W.PM.PROC2 ---
Procedure Note - Detailed Date of Procedure 03/03/24 Pre-op Diagnosis acute cholecystitis, cholelithiasis Post-op Diagnosis Other (acute hydrops cholecystitis, cholelithiasis, necrosis of gallbladder wall) Procedure Performed laparoscopic cholecystectomy, extensive lysis of adhesions Surgeon Heike Mullins MD Anesthesia General and Local Indications 63 y/o F presenting c acute cholecystitis, cholelithiasis Findings severe hydrops cholecystitis, cholelithiasis, necrosis of gallbladder wall Description of Procedure The patient was taken to the operating room placed in the supine position. After adequate induction of general anesthesia, the patient was prepped and draped in normal sterile fashion. A time-out was then performed to verify the patient's identity as well as the procedure being performed. I then made a 5 mm incision in the mid abdominal region. Through this, a Veress needle was placed into the peritoneal cavity and CO2 gas was then insufflated. After adequate pneumoperitoneum was achieved, the Veress needle was removed and a 5 mm optiview trocar was placed through this incision under direct visualization. I then placed the laparoscope through this trocar site and under direct visualization placed a further 12 mm subxiphoid port as well as additional 5 mm ports in the right upper abdomen and periumbilical region. The gallbladder was then identified and was noted to be severely inflamed, distended, and full of gallstones. Given the degree of inflammation and distention, the gallbladder was decompressed to allow manipulation. Hydrops cholecystitis was noted at this point. I was then able to place a grasper at the dome of the gallbladder and this was retracted anterior and cephalad up over the liver. A 2nd retractor was then placed at the infundibulum and retracted laterally, this allowed visualization of the triangle of Calot. I then was able to visualize the cystic duct in its entirety from its proximal insertion into the gallbladder, to its distal junction with the common hepatic/common bile duct junction. The gallbladder was very inflamed and friable requiring adhesiolysis of the adhesed omentum. At this point, I carefully skeletonized the proximal cystic duct with the [place] dissector. I then clipped and transected the proximal cystic duct. Next I visualized the cystic artery. Again the artery was skeletonized, clipped, and transected. I then used the Bovie cautery to take down the peritoneal attachments of the gallbladder off the liver bed. This was difficult given the amount of inflammation in the posterior space. The backwall of the gallbladder was very friable with evidence of necrosis of the wall. There were multiple stones spilled at this point. Once the gallbladder specimen was completely detached, an endo-pouch was placed through the 12 mm port site. I then placed the gallbladder specimen and the spilled stones into the Endo pouch and removed the endo-pouch from the 12 mm port site. Please note the incision had to be extended to allow extraction of the specimen. The specimen will now be sent to pathology for further review. I then copiously irrigated the right upper quadrant. Some mild oozing was noted in the liver bed and this was controlled with the bovie cautery. Hemostasis was noted in the liver bed, the clips were noted to be in good position on both the cystic duct stump and the cystic artery stump. No other pathology was noted in the right upper quadrant. I then moved the laparoscope to the subxiphoid port. No iatrogenic injury or other pathology was noted in the lower abdomen. At this point, the abdomen was desufflated and all ports removed. Given the enlargement of the subxiphoid port, I closed the fascia with an 0 Vicryl stich. All port sites were then closed with 4.O Monocryl subcuticular sutures. Dermabond was placed on each incision. The patient tolerated the procedure well, was extubated in the operating ro
--- NOTE | 2024-03-03 17:16 | SUR.PHASEI ---
Simple mask removed 1715.
[2024-03-03] MEDS: ACETAMINOPHEN 325 MG TABLET 650 MG PO (21:15)
[2024-03-04 00:31] VITALS: BP 102/52; PULSE 69; RESP 16; TEMP 36.7; O2SAT 92
[2024-03-04 04:13] VITALS: BP 119/61; PULSE 60; RESP 16; TEMP 36.7; O2SAT 95
[2024-03-04] MEDS: metroNIDAZOLE 500 MG/ISO 100ML 500 MG/100 ML BAG 100 MG IVPB ×2 (05:55→14:23)
[2024-03-04] MEDS: ACETAMINOPHEN 325 MG TABLET 650 MG PO (05:57)
[2024-03-04 07:27] LABS: Basophils Percent Auto 0.2 % (0.2-1.2); Eosinophils Percent Auto 0.1 % (0-4.4); Hematocrit 36.2 % (37.0-47.0); Hemoglobin 11.4 g/dL (12.0-15.0); Immature Granulocyte Absolute 0.08 K/mm3 (0.00-0.031); Immature Granulocyte Percent A 0.5 % (0-0.5); Lymphocytes Percent Auto 5.8 % (18.3-44.2); Mean Corpuscular HGB Conc 31.5 g/dl (32-36); Mean Corpuscular Hemoglobin 30.1 pg (26-34); Mean Corpuscular Volume 95.5 fl (80-100); Mean Platelet Volume 8.8 fl (7.4-10.4); Monocytes Absolute Auto 1.1 K/mm3 (0.1-0.6); Monocytes Percent Auto 6.5 % (2.6-8.5); Neutrophils Percent Auto 86.9 % (45.5-73.1); Platelet Count Result 247 k/mm3 (150-375); Red Blood Count 3.79 M/mm3 (4.2-5.4); White Blood Count 17.2 K/mm3 (4.5-10.0)
[2024-03-04 07:33] LABS: Alanine Aminotransferase 75 U/L (6-35); Alkaline Phosphatase 107 U/L (38-126); Anion Gap 3 mmol/L (4-12); Aspartate Amino Transferase 53 U/L (14-36); Bilirubin,Total 0.5 mg/dL (0.2-1.3); Blood Urea Nitrogen 11 mg/dL (7-17); Carbon Dioxide 33 mmol/L (22-30); Chloride 101 mmol/L (98-107); Estimated CRCL calculation 93 ml/min; Estimated Glomerular Filt Rate > 60; Glucose 153 mg/dL (65-110); Magnesium 2.3 mg/dL (1.6-2.3); Potassium 3.9 mmol/L (3.4-5.0); Sodium 137 mmol/L (137-145)
[2024-03-04 07:34] LABS: Magnesium 2.3 mg/dL (1.6-2.3)
[2024-03-04] MEDS: PANTOPRAZOLE SODIUM IV 40 MG VIAL IV PUSH (08:50)
[2024-03-04] MEDS: SODIUM CHLORIDE 0.9% IV 1,000 ML 100 ML IV CONT (08:52)
--- NOTE | 2024-03-04 11:06 | PM.IMPN ---
Progress Note: A&P Assessment and Plan (1) Abdominal pain: Code(s): R10.9 - Unspecified abdominal pain Status: Acute Assessment and Plan: Acute Cholecystitis as evidenced per US, s/p OR 03/04 with necrotic gallbladder Clear liquids, advance per surgery PRN anti-emetics Tylenol prn, oxy if needed . IVF of NS at 100 ml/hr Surgery following, appreciate surgical management Blood count dropped from 13>11.4, expected since more blood loss than typical during a surgery (2) Cholelithiasis: Qualifiers: Cholecystitis presence: with cholecystitis Cholecystitis acuity: acute and chronic Code(s): K80.20 - Calculus of gallbladder without cholecystitis without obstruction Status: Acute Assessment and Plan: See #1 (3) Leukocytosis: Code(s): D72.829 - Elevated white blood cell count, unspecified Status: Acute Assessment and Plan: Secondary to #'s 1 and 2. Trending downward at this time 28.6-->24.3. Continue Zosyn Trend Leukocytosis with daily labs. (4) Hypertension: Code(s): I10 - Essential (primary) hypertension Status: Chronic Assessment and Plan: Hold HCTZ while on fluids, Resume as able (5) Pre-diabetes: Code(s): R73.03 - Prediabetes Status: Chronic Assessment and Plan: A1C 6.7 Heart healthy diet when allowed to eat. Plan Overall doing well Advance diet per surgery Likely discharge soon when tolerating PO Hasn't had a BM yet Follow WBC and H&H Time Spent With Patient Time: 39 minutes Subjective Date/time seen: 03/04/24 11:06 Interval history: s/p cholecystectomy yesterday, open procedure due to gallbladder necrosis. Feeling well today, minimal pain to RUQ, feels mostly at surgical site, only needing tylenol. No nausea, passing gas but no BM yet. Clear liquids this morning, advance per surgery Voiding, up to the bathroom IV to left arm infiltrated, mild edema Review of Systems Review of Systems: 12 systems were reviewed and are negative except for as per HPI. All systems reviewed & are unremarkable except as noted in HPI and below Exam Narrative: General: Well-developed, nontoxic-appearing female lying supine in bed at this time in no acute distress HEENT: PERRL, EOMI. Sclera anicteric. MMM Neck: Supple with FROM Respiratory: Lungs are clear to auscultation bilaterally. Cardiovascular: Regular rate and rhythm with S1-S2. Gastrointestinal: Abdomen is soft, Minimally TTP in RUQ with light palpation, and nondistended with positive bowel sounds. Obese Skin: Warm and dry without lesions or rashes. Extremities: No cyanosis, clubbing. Local edema to left arm. Radial and pedal pulses intact. Neurological: Alert. Cranial nerves 2-12 are grossly intact. No gross focal deficits to casual conversation. Psychiatric: Pleasant and cooperative with normal mood and affect. Judgment and insight intact. Objective Data Vital Signs Vital Signs: Vital Signs - 24 hr 03/03/24 15:00 03/03/24 16:58 03/03/24 17:10 Temperature 98.7 F 99.3 F Pulse Rate 98 104 H 96 Respiratory Rate 14 20 17 Blood Pressure 143/80 H 170/66 H 160/69 H Pulse Oximetry 93 97 100 Oxygen Delivery Room Air Simple Face Mask Simple Face Mask Oxygen Flow Rate 8 8 03/03/24 17:25 03/03/24 17:40 03/03/24 17:55 Temperature 97.5 F L 99.1 F Pulse Rate 96 98 90 Respiratory Rate 17 14 16 Blood Pressure 151/69 H 147/69 H 146/64 H Pulse Oximetry 94 94 93 Oxygen Delivery Nasal Cannula Nasal Cannula Oxygen Flow Rate 2 2 03/03/24 18:10 03/03/24 18:40 03/03/24 20:01 Temperature 98.8 F 98.4 F 98.2 F Pulse Rate 88 84 81 Respiratory Rate 16 16 18 Blood Pressure 145/58 H 145/75 H 121/71 Pulse Oximetry 94 92 92 Oxygen Delivery Oxygen Flow Rate 03/03/24 20:00 03/04/24 00:31 03/04/24 04:13 Temperature 98.1 F 98.1 F Pulse Rate 69 60 Respiratory Rate 16 16 Blood Pressure 102/52 L 119/61
--- NOTE | 2024-03-04 12:38 | PM.PNGS ---
Progress Note: A&P Assessment and Plan (1) Acute calculous cholecystitis: Code(s): K80.00 - Calculus of gallbladder with acute cholecystitis without obstruction Status: Acute Assessment and Plan: POD1 and doing well. Advance to low fat diet. Surgically stable for discharge today. Follow-up in [address] Mullins. Plan I have discussed the patient's case and plan of care with Dr. Mullins. Subjective Subjective Date/Time Seen: 03/04/24 12:38 Post Op day: 1 (laparoscopic cholecystectomy) Patient reports: feels better, tolerating liquids well, voiding w/o difficulty, flatus, no bowel movement and afebrile Interval history: Patient feeling much better today. She reports incisional pain at the epigastric port incision that was lengthened to remove the gallbladder. No nausea or vomiting. No other complaints at this time. Exam Const: General: comfortable and no acute distress GI: Inspection: non-distended and incision (dry and glue intact) GI Palp: Yes Soft to palpation, Yes Tenderness to palpation present (GI) (incisional) and No Guarding due to palpation present (GI) Auscultation: normal bowel sounds Objective Data Vital Signs Vital Signs: Vital Signs - 24 hr 03/03/24 15:00 03/03/24 16:58 03/03/24 17:10 Temperature 98.7 F 99.3 F Pulse Rate 98 104 H 96 Respiratory Rate 14 20 17 Blood Pressure 143/80 H 170/66 H 160/69 H Pulse Oximetry 93 97 100 Oxygen Delivery Room Air Simple Face Mask Simple Face Mask Oxygen Flow Rate 8 8 03/03/24 17:25 03/03/24 17:40 03/03/24 17:55 Temperature 97.5 F L 99.1 F Pulse Rate 96 98 90 Respiratory Rate 17 14 16 Blood Pressure 151/69 H 147/69 H 146/64 H Pulse Oximetry 94 94 93 Oxygen Delivery Nasal Cannula Nasal Cannula Oxygen Flow Rate 2 2 03/03/24 18:10 03/03/24 18:40 03/03/24 20:01 Temperature 98.8 F 98.4 F 98.2 F Pulse Rate 88 84 81 Respiratory Rate 16 16 18 Blood Pressure 145/58 H 145/75 H 121/71 Pulse Oximetry 94 92 92 Oxygen Delivery Oxygen Flow Rate 03/03/24 20:00 03/04/24 00:31 03/04/24 04:13 Temperature 98.1 F 98.1 F Pulse Rate 69 60 Respiratory Rate 16 16 Blood Pressure 102/52 L 119/61 Pulse Oximetry 92 95 Oxygen Delivery Room Air Oxygen Flow Rate 03/04/24 08:00 Temperature Pulse Rate Respiratory Rate Blood Pressure Pulse Oximetry Oxygen Delivery Room Air Oxygen Flow Rate Intake/Output Intake/Output: Intake & Output 03/01/24 03/02/24 03/03/24 03/04/24 23:59 23:59 23:59 23:59 Intake Total 630 2360 1660 Output Total 1600 600 Balance 335 647 6233 Meds/Results Medications: Active Medications Generic Name Dose Route Start Last Admin Trade Name Freq PRN Reason Stop Dose Admin Acetaminophen 650 mg 03/02/24 16:30 03/04/24 05:57 Acetaminophen 325 Mg Tablet PO 650 mg Q4H PRN Administration Mild Pain (1-3) or Fever Hydrocodone Bitart/Acetaminophen 1 tab 03/02/24 16:32 03/02/24 20:41 Hydrocodone/Acetaminophen (*Crx) 5-325 Mg Tablet PO 1 tab Q6H PRN Administration Pain Rated 4-6 Ceftriaxone Sodium 1 gm in 50 mls @ 100 mls/hr 03/02/24 21:00 03/03/24 21:44 Rocephin 1 Gm/Ns 50 Ml IVPB Infused Q24H FLAKO Infusion Metronidazole 500 mg in 100 mls @ 100 mls/hr 03/02/24 22:00 03/04/24 05:55 Flagyl 500 Mg/Iso Soln 100 Ml IVPB 100 mls/hr Q8HR FLAKO Administration Sodium Chloride 1,000 mls @ 100 mls/hr 03/03/24 11:00 03/04/24 08:52 Normal Saline Iv IV CONT 100 mls/hr .Q10H FLAKO Administration Morphine Sulfate 2 mg 03/02/24 16:30 Morphine Sulfate (*Crx) 2 Mg/Ml Inj IV PUSH Q4H PRN Pain Rated 7-10 Ondansetron HCl 4 mg 03/02/24 16:32 Ondansetron Inj 4 Mg/2 Ml Vial IV PUSH Q6H PRN Nausea And Vomiting Pantoprazole Sodium 40 mg 03/03/24 09:00 03/04/24 08:50 Pantoprazole Sodium Iv 40 Mg Vial IV PUSH 40 mg QAM FLAKO Administration Radiology Results: ITS Impressions Chest X-Ray 03/02/24 20:
--- NOTE | 2024-03-21 06:34 | PM.DS ---
DS: Admitting Diagnosis Discharge Date 03/04/24 Admitting Diagnosis Acute cholecystitis DS: Discharge Diagnosis Discharge Diagnosis (1) Acute calculous cholecystitis: Code(s): K80.00 - Calculus of gallbladder with acute cholecystitis without obstruction Status: Acute DS: Summary Hospital Course Reason for hospitalization: Copied from H&P 03/02: This is a very pleasant 63-year-old female with hypertension, hyperlipidemia, and prediabetes who presented to the emergency department at the [facility] earlier today for evaluation of epigastric pain. The patient provides the following history. Shortly after eating dinner last night (cheesy potatoes, chicken nuggets, and ice cream) she developed sudden and severe aching pain in the epigastric and right upper quadrant associated with nausea. She induced emesis x4 which was of no benefit. Advil was of no relief either. She has had quite a bit of belching and flatus since that time and this morning she had small, formed stools. She has never had similar symptoms. Her ate the same dinner and has not had any issues. Of note, she tested positive for COVID last Friday with mild symptoms that have improved and nearly resolved. She has not had a fever. She denies chest pain, pleuritic pain, shortness of breath, hematemesis, melena, hematochezia. No history of peptic ulcers, pancreatitis, or gallbladder disease In the ED: She was afebrile on arrival. Blood pressures have been running high, in the upper 180s to low 200s systolic. Labs were significant for WBC count 23.7, hemoglobin 14.6, sodium 132, potassium 3.4, chloride 93, BUN 10, creatinine 1.01, glucose 174, lactic acid 2.8, total bilirubin 0.6, AST 20, ALT 34, alkaline phosphatase 134, lipase 15. CT of the abdomen and pelvis showed cholelithiasis, bilateral kidney scarring, and small fat containing umbilical hernia. Transfer was initiated to [place] for further evaluation and possible GI and surgery consults. Hospital Course: Kenyon Marte presented to [facility] 03/02 for evaluation of epigastric pain, transferred to [place] for acute cholecystitis. Also recently tested positive for COVID.? She was found to have severe hydrops cholecystitis and necrosis of the gallbladder wall so required an open procedure. Post procedure was doing well. Incision clean and pain controlled on Tylenol. Acute cholecystitis evidenced per US, s/p OR 03/04 with necrotic gallbladder. WBC elevated to 28.6 on 03/12, improved to 17.2 on 03/04. Tolerating a diet prior to discharge. Started on empirici Zosyn, continued Levaquin & Metronidazole for 7 days.? She will follow up with surgery in the clinic. Anemia--Blood loss during surgery, H&H drop from 13/40>11.4/36.2. Follow up labs outpatient HTN?Blood pressure 102-119/52-61 on day of discharge. Stopped HCTZ until follow up ?? Status at Discharge Cognitive/behavioral status at discharge: A&O X3 Time Spent with Patient Time attestation: Total time spent providing and/or coordinating discharge services: 65 minutes Exam Narrative: General: Well-developed, nontoxic-appearing female lying supine in bed at this time in no acute distress HEENT: PERRL, EOMI. Sclera anicteric. MMM Neck: Supple with FROM Respiratory: Lungs are clear to auscultation bilaterally. Cardiovascular: Regular rate and rhythm with S1-S2. Gastrointestinal: Abdomen is soft, Minimally TTP in RUQ with light palpation, and nondistended with positive bowel sounds. Obese Skin: Warm and dry without lesions or rashes. Surgical incision dry and glue intact Extremities: No cyanosis, clubbing. Local edema to left arm. Radial and pedal pulses intact. Neurological: Alert. Cranial nerves 2-12 are grossly intact. No gross focal deficits to casual conversation. Psychiatric: Pleasant and cooperative with normal mood and affect. Judgment and insight intact. DS: Data Data Completed and Pending Completed studies [email or web address]
== END 2024-03-04 15:58 | disposition home or self-care (01) ==
PROVIDERS: Nurse Practitioner Adult Health; Physician Assistant; Surgery; Admitting Provider Internal Medicine; PCP Family Medicine; Visit Provider Nurse Practitioner Acute Care
PROC: 0FT44ZZ Resection of Gallbladder, Percutaneous Endoscopic Approach (ICD-10-PCS; CPT 47562; principal; 2024-03-03 17:00)
DX: K80.00 Calculus of gallbladder with acute cholecystitis without obstruction (principal); K82.8 Other specified diseases of gallbladder; K82.1 Hydrops of gallbladder; I10 Essential (primary) hypertension; E78.5 Hyperlipidemia, unspecified; R73.03 Prediabetes; E66.01 Morbid (severe) obesity due to excess calories; Z68.41 Body mass index [BMI] 40.0-44.9, adult; Z79.82 Long term (current) use of aspirin
CPT/HCPCS: 47562; 36415; 71045; 76705; 80053; 83036; 83690; 83735; 84145; 85025; 85027; 86140; 88304; 96361; 96365; 96366; 96367; A9270; G0378; J0696; J1100; J1170; J1836; J2250; J2470; J2704; J3010; J7030; J7120

== ENCOUNTER 2024-07-29 11:09 | Outpatient (CLI) | payer MEDICARE, SELFPAY ==
[2024-07-29 19:45] LABS: Anion Gap 9 mmol/L (4-12); Blood Urea Nitrogen 16 mg/dL (7-17); Calcium 9.5 mg/dL (8.4-10.2); Carbon Dioxide 32 mmol/L (22-30); Chloride 99 mmol/L (98-107); Cholesterol 228 mg/dL (0-200); Estimated Glomerular Filt Rate > 60; Glucose 138 mg/dL (65-110); HDL Direct 38 mg/dL; Potassium 4.2 mmol/L (3.4-5.0); Sodium 140 mmol/L (137-145); Triglycerides 254 mg/dL (<150)
[2024-07-29 19:59] LABS: LDL Cholesterol Direct 129 mg/dL
[2024-07-29 20:52] LABS: Hemoglobin A1C 7.1 % (<5.7)
== END 2024-07-29 11:10 | disposition home or self-care (01) ==
LOC: ANHGOSHLAB 11:10
PROVIDERS: PCP Family Medicine; Visit Provider Family Medicine
DX: R73.03 Prediabetes (principal); I10 Essential (primary) hypertension
CPT/HCPCS: 36415; 80048; 80061; 83036

== ENCOUNTER 2024-12-16 09:09 | Outpatient (CLI) | payer MEDICARE, SELFPAY ==
[2024-12-16 12:51] LABS: Hematocrit 44.6 % (37.0-47.0); Hemoglobin 14.1 g/dL (12.0-15.0); Immature Granulocyte Percent A 0.4 % (0-0.5); Lymphocytes Absolute Auto 1.96 K/mm3 (0.9-3.2); Mean Corpuscular HGB Conc 31.6 g/dl (32-36); Mean Corpuscular Hemoglobin 29.9 pg (26-34); Mean Corpuscular Volume 94.5 fl (80-100); Nucleated Red Blood Cells Absolute Auto 0.000 K/mm3 (0.0-0.012); Nucleated Red Blood Cells Perc 0.0 % (0.0-0.2); Platelet Count Result 315 k/mm3 (150-375); Red Blood Count 4.72 M/mm3 (4.2-5.4); White Blood Count 11.1 K/mm3 (4.5-10.0)
[2024-12-16 12:57] LABS: Alanine Aminotransferase 33 U/L (6-35); Albumin Level 3.8 g/dL (3.5-5.1); Alkaline Phosphatase 111 U/L (38-126); Anion Gap 9 mmol/L (4-12); Aspartate Amino Transferase 48 U/L (14-36); Bilirubin,Total 0.6 mg/dL (0.2-1.3); Blood Urea Nitrogen 14 mg/dL (7-17); Calcium 9.5 mg/dL (8.4-10.2); Carbon Dioxide 31 mmol/L (22-30); Chloride 101 mmol/L (98-107); Cholesterol 224 mg/dL (0-200); Estimated Glomerular Filt Rate > 60; Glucose 141 mg/dL (65-110); HDL Direct 36 mg/dL; Potassium 3.8 mmol/L (3.4-5.0); Sodium 141 mmol/L (137-145); Total Protein 7.4 g/dL (6.3-8.2); Triglycerides 204 mg/dL (<150)
[2024-12-16 13:28] LABS: Thyroid Stimulating Hormone 4.420 uIU/mL (0.465-4.680)
[2024-12-16 13:42] LABS: MALB Creatinine Ratio 4.6 mg/g (0-30)
[2024-12-16 14:26] LABS: Hemoglobin A1C 6.9 % (<5.7)
== END 2024-12-16 09:10 | disposition home or self-care (01) ==
PROVIDERS: PCP Family Medicine; Visit Provider Clinical Nurse Specialist
DX: D64.9 Anemia, unspecified (principal); I10 Essential (primary) hypertension; E78.2 Mixed hyperlipidemia; R74.8 Abnormal levels of other serum enzymes; R73.01 Impaired fasting glucose; D72.829 Elevated white blood cell count, unspecified
CPT/HCPCS: 36415; 80053; 80061; 82043; 83036; 84443; 85025

== ENCOUNTER 2024-12-22 09:14 | Outpatient (CLI) | payer MEDICARE, SELFPAY ==
--- NOTE | ~2024-12-22 | XR_ITS ---
EXAM/ PROCEDURE: XR foot LT min 3V - 12/22/2024 9:15 CDT HISTORY: 64 years old Female with Pain post Lt heel with walking x3 weeks, visible swelling COMPARISON: None available TECHNIQUE: Three view(s) FINDINGS/ IMPRESSION: There are no fractures or dislocations.Joint spaces are within normal limits. Reviewed, dictated and finalized at location A.
== END 2024-12-22 09:15 | disposition home or self-care (01) ==
LOC: GOSHIMG 09:14
PROVIDERS: PCP Family Medicine; Visit Provider Family Medicine
DX: M79.672 Pain in left foot (principal)
CPT/HCPCS: 73630

== ENCOUNTER 2025-05-09 11:20 | Outpatient (CLI) | payer MEDICARE, SELFPAY ==
[2025-05-09 13:20] LABS: Alanine Aminotransferase 27 U/L (6-35); Albumin Level 4.1 g/dL (3.5-5.1); Alkaline Phosphatase 113 U/L (38-126); Anion Gap 6 mmol/L (4-12); Aspartate Amino Transferase 43 U/L (14-36); Bilirubin,Total 0.7 mg/dL (0.2-1.3); Blood Urea Nitrogen 19 mg/dL (7-17); Calcium 9.6 mg/dL (8.4-10.2); Carbon Dioxide 31 mmol/L (22-30); Chloride 100 mmol/L (98-107); Cholesterol 134 mg/dL (0-200); Estimated Glomerular Filt Rate > 60; Glucose 124 mg/dL (65-110); HDL Direct 35 mg/dL; Potassium 4.1 mmol/L (3.4-5.0); Sodium 137 mmol/L (137-145); Total Protein 7.4 g/dL (6.3-8.2); Triglycerides 157 mg/dL (<150)
[2025-05-09 15:06] LABS: Hemoglobin A1C 6.7 % (<5.7)
== END 2025-05-09 11:21 | disposition home or self-care (01) ==
LOC: ANHGOSHLAB 11:21
PROVIDERS: PCP Family Medicine; Visit Provider Family Medicine
DX: E78.2 Mixed hyperlipidemia (principal); E11.9 Type 2 diabetes mellitus without complications
CPT/HCPCS: 36415; 80053; 80061; 83036